=== PATIENT | female | born 1965 | race Caucasian/White ===

== ENCOUNTER 2020-07-23 15:41 | Emergency (ER) | payer OTHER | END 2020-07-23 16:40 | disposition home or self-care (01) | LOC: FER 15:41 | DX: L08.9 Local infection of the skin and subcutaneous tissue, unspecified (principal); I10 Essential (primary) hypertension | CPT/HCPCS: 73630 ==

== ENCOUNTER 2020-08-17 09:43 | Emergency (ER) | payer OTHER ==
[2020-08-17 10:43] LABS: BASOPHIL 0.4 % (0-2); EOSINOPHIL 1.7 % (0-5); HCT 31.2 % (37.0-47.0); HGB 10.9 g/dl (12.5-16.0); LYMPHOCYTE 13.1 % (15-48); MCH 32.7 pg (25.0-31.0); MCHC 34.9 g/dL (32.0-36.0); MCV 93.7 fL (78.0-100.0); MONOCYTE 9.2 % (0-12); MPV 11.6 fL (6.0-9.5); NEUTROPHIL 74.9 % (41-80); NRBC 0.2; PLT 109 K/uL (150-400); RBC 3.33 M/uL (4.20-5.40); RDW 18.6 % (11.5-14.0); WBC 8.5 K/uL (4.0-10.5)
[2020-08-17 11:03] LABS: ALBUMIN 1.6 g/dL (3.4-5.0); BUN/CREAT RATIO (CALC) 10.6 RATIO; CREATININE 0.85 mg/dL (0.51-0.95); GLOBULIN (CALCULATION) 6.9 g/dL; POTASSIUM 3.6 mmol/L (3.5-5.1); TOTAL PROTEIN 8.5 g/dL (6.4-8.2)
[2020-08-17 12:07] LABS: ALBUMIN 1.6 g/dL (3.4-5.0); BILIRUBIN - TOTAL 3.4 mg/dL (0.2-1.0); BUN/CREAT RATIO (CALC) 10.3 RATIO; CREATININE 0.78 mg/dL (0.51-0.95); GLOBULIN (CALCULATION) 7.3 g/dL; POTASSIUM 3.6 mmol/L (3.5-5.1); TOTAL PROTEIN 8.9 g/dL (6.4-8.2)
[2020-08-17] MEDS ORDERED: CLEOCIN300 MG PO (15:34)
== END 2020-08-17 16:12 | disposition home or self-care (01) ==
LOC: FER 09:43
PROVIDERS: Emergency Medicine
DX: L08.9 Local infection of the skin and subcutaneous tissue, unspecified (principal); E80.7 Disorder of bilirubin metabolism, unspecified; I10 Essential (primary) hypertension; Z79.899 Other long term (current) drug therapy
CPT/HCPCS: 36415; 80053; 85025; 87040; 99283

== ENCOUNTER 2021-05-31 08:36 | Emergency (ER) | payer OTHER ==
[~2021-05-31 08:36] MED LIST: CLEOCIN300 MG PO
[2021-05-31 10:07] LABS: BILIRUBIN NEGATIVE (NEGATIVE); BLOOD 1+ Ery/uL (NEGATIVE); CLARITY HAZY (CLEAR); COLOR YELLOW (YELLOW); GLUCOSE (U) 1+ mg/dL (NORMAL); LEUKOCYTES NEGATIVE Leu/uL (NEGATIVE); NITRITE NEGATIVE (NEGATIVE); PROTEIN NEGATIVE (NEGATIVE); SPECIFIC GRAVITY 1.025 (1.001-1.030)
[2021-05-31 10:10] LABS: INR 1.5 (0.9-1.2); PROTHROMBIN TIME 17.4 SECONDS (11.8-13.4); PTT 41.4 SECONDS (24.4-34.7)
[2021-05-31 10:12] LABS: BASOPHIL 0.9 % (0-2); EOSINOPHIL 2.2 % (0-5); HCT 28.8 % (37.0-47.0); HGB 9.8 g/dl (12.5-16.0); LYMPHOCYTE 22.3 % (15-48); MCH 34.5 pg (25.0-31.0); MCV 101.4 fL (78.0-100.0); MONOCYTE 12.4 % (0-12); MPV 12.3 fL (6.0-9.5); NEUTROPHIL 61.7 % (41-80); NRBC 0; PLT 92 K/uL (150-400); RBC 2.84 M/uL (4.20-5.40); RDW 18.9 % (11.5-14.0); WBC 6.4 K/uL (4.0-10.5)
[2021-05-31 10:29] LABS: LACTIC ACID 2.2 mmol/L (0.4-1.9)
[2021-05-31 10:29] LABS: BACTERIA 2+
[2021-05-31 10:33] LABS: ALBUMIN 1.8 g/dL (3.4-5.0); BILIRUBIN - TOTAL 1.5 mg/dL (0.2-1.0); BUN/CREAT RATIO (CALC) 13.3 RATIO; CREATININE 0.75 mg/dL (0.51-0.95); FT4 (FREE T4) 0.7 ng/dL (0.76-1.46); GLOBULIN (CALCULATION) 4.7 g/dL; MAGNESIUM 1.5 mg/dL (1.8-2.4); POTASSIUM 3.5 mmol/L (3.5-5.1); TOTAL PROTEIN 6.5 g/dL (6.4-8.2)
== END 2021-05-31 15:54 | disposition home or self-care (01) ==
LOC: FER 08:36
PROVIDERS: Emergency Medicine
DX: K75.81 Nonalcoholic steatohepatitis (NASH) (principal); K74.60 Unspecified cirrhosis of liver; E88.09 Other disorders of plasma-protein metabolism, not elsewhere classified; R60.0 Localized edema; Z28.310 Unvaccinated for COVID-19
CPT/HCPCS: 36415; 71260; 80053; 81001; 82728; 83540; 83550; 83605; 83690; 83735; 83880; 84145; 84439; 84443; 84484; 85025; 85610; 85730; 93005; Q9967

== ENCOUNTER 2021-07-06 12:27 | Emergency (ER) | payer OTHER ==
[2021-07-06 14:01] LABS: BASOPHIL 0.5 % (0-2); EOSINOPHIL 1.4 % (0-5); HCT 30.7 % (37.0-47.0); HGB 10.1 g/dl (12.5-16.0); LYMPHOCYTE 8.9 % (15-48); MCH 32.2 pg (25.0-31.0); MCHC 32.9 g/dL (32.0-36.0); MCV 97.8 fL (78.0-100.0); MONOCYTE 11.6 % (0-12); MPV 12.7 fL (6.0-9.5); NEUTROPHIL 77.3 % (41-80); NRBC 0; PLT 124 K/uL (150-400); RBC 3.14 M/uL (4.20-5.40); RDW 19.1 % (11.5-14.0); WBC 6.4 K/uL (4.0-10.5)
[2021-07-06 14:23] LABS: ALBUMIN 2.1 g/dL (3.4-5.0); BILIRUBIN - TOTAL 1.7 mg/dL (0.2-1.0); BUN/CREAT RATIO (CALC) 13.6 RATIO; CREATININE 0.81 mg/dL (0.51-0.95); GLOBULIN (CALCULATION) 5.3 g/dL; POTASSIUM 4.1 mmol/L (3.5-5.1); TOTAL PROTEIN 7.4 g/dL (6.4-8.2)
[2021-07-06 16:20] LABS: BILIRUBIN NEGATIVE (NEGATIVE); BLOOD TRACE-INTACT Ery/uL (NEGATIVE); CLARITY CLEAR (CLEAR); COLOR YELLOW (YELLOW); GLUCOSE (U) 2+ mg/dL (NORMAL); LEUKOCYTES NEGATIVE Leu/uL (NEGATIVE); NITRITE NEGATIVE (NEGATIVE); PROTEIN NEGATIVE (NEGATIVE); UROBILINOGEN 0.2 mg/dL (0.2-1.0)
[2021-07-06 16:28] LABS: URINARY RBC RARE; URINARY WBC RARE
[2021-07-06 16:29] LABS: BACTERIA TRACE
[2021-07-06 17:17] LABS: FT4 (FREE T4) 1.1 ng/dL (0.76-1.46)
== END 2021-07-06 20:00 | disposition home or self-care (01) ==
LOC: FER 12:27
PROVIDERS: Emergency Medicine
DX: R18.8 Other ascites (principal); R73.9 Hyperglycemia, unspecified; Z28.310 Unvaccinated for COVID-19
CPT/HCPCS: 36415; 71260; 80053; 81001; 82009; 83690; 84439; 84443; 85025

== ENCOUNTER 2021-09-30 14:06 | Emergency (ER) | payer OTHER ==
[2021-09-30 14:46] LABS: BASOPHIL 0.4 % (0-2); HCT 33.9 % (37.0-47.0); HGB 11.1 g/dl (12.5-16.0); LYMPHOCYTE 18.2 % (15-48); MCH 31.7 pg (25.0-31.0); MCHC 32.7 g/dL (32.0-36.0); MCV 96.9 fL (78.0-100.0); MONOCYTE 7.7 % (0-12); MPV 11.7 fL (6.0-9.5); NEUTROPHIL 70.4 % (41-80); NRBC 0; PLT 126 K/uL (150-400); RDW 19.4 % (11.5-14.0); WBC 7.4 K/uL (4.0-10.5)
[2021-09-30 15:13] LABS: LACTIC ACID 4.8 mmol/L (0.4-1.9)
[2021-09-30 15:14] LABS: ALBUMIN 2.4 g/dL (3.4-5.0); BILIRUBIN - TOTAL 1.1 mg/dL (0.2-1.0); BUN/CREAT RATIO (CALC) 16.1 RATIO; CREATININE 1.18 mg/dL (0.51-0.95); GLOBULIN (CALCULATION) 4.7 g/dL; POTASSIUM 3.8 mmol/L (3.5-5.1); TOTAL PROTEIN 7.1 g/dL (6.4-8.2)
[2021-09-30 15:44] LABS: BILIRUBIN NEGATIVE (NEGATIVE); BLOOD NEGATIVE Ery/uL (NEGATIVE); CLARITY CLEAR (CLEAR); COLOR YELLOW (YELLOW); GLUCOSE (U) NORMAL (NORMAL); LEUKOCYTES TRACE Leu/uL (NEGATIVE); NITRITE NEGATIVE (NEGATIVE); PROTEIN NEGATIVE (NEGATIVE); UROBILINOGEN 0.2 mg/dL (0.2-1.0); pH 5.5 (5.0-9.0)
[2021-09-30 16:05] LABS: BACTERIA 1+; URINARY WBC RARE
[2021-09-30 16:15] LABS: INFLUENZA A NAA NEGATIVE (NEGATIVE)
[2021-09-30 16:26] LABS: CORONAVIRUS 2019 SARS-COV-2 POSITIVE (NEGATIVE)
[2021-09-30] MEDS ORDERED: ONDANSETRON ODT4 MG PO (18:04)
== END 2021-09-30 18:21 | disposition home or self-care (01) ==
LOC: FER 14:06
PROVIDERS: Physician Assistant
DX: U07.1 COVID-19 (principal); E11.9 Type 2 diabetes mellitus without complications; I10 Essential (primary) hypertension; Z28.310 Unvaccinated for COVID-19
CPT/HCPCS: 36415; 36600; 80053; 81001; 82803; 83605; 83690; 85025; J7030; Q9967; U0002